=== PATIENT | male | born 1965 | race Two or more races ===

== ENCOUNTER 2020-07-24 07:03 | Day surgery (SDC) | payer BC ==
[2020-07-24] VITALS (12 sets, daily range): BP systolic 102–131; BP diastolic 72–90
[~2020-07-24] VITALS: Ht 177.8 cm; Wt 81.6 kg
[2020-07-24] MEDS ORDERED: TRAZODONE HCL50 MG ORAL (07:38)
[2020-07-24] MEDS ORDERED: PRILOSEC OTC20 MG ORAL (07:38)
[2020-07-24] MEDS ORDERED: LR 1000ml ONE (08:00)
[2020-07-24] MEDS ORDERED: NS Irrig 1000ml ONE (08:00)
[2020-07-24] MEDS ORDERED: Sterile Water Irrig 1000ml IRRIG ONE (08:00)
[2020-07-24] MEDS ORDERED: EPINEPHrine 1mg/1ml Amp ONE (08:29)
[2020-07-24] MEDS ORDERED: Bupivacaine 0.5% Inj 30 ml vial INJ ONE (08:30)
[2020-07-24] MEDS ORDERED: Bupivacaine w/Epi 0.25% 50ml vial INJ ONE (08:30)
[2020-07-24] MEDS ORDERED: Bacitracin 50000 Units Vial ONE (08:30)
[2020-07-24] MEDS ORDERED: Hydromorphone 0.5mg/0.5ml inj IVP PRN (08:45)
[2020-07-24] MEDS ORDERED: Meperidine 25mg/1ml Inj (FOR RIGORS ONLY) IV PRN (08:45)
[2020-07-24] MEDS ORDERED: oxyCODONE HCL/Acetaminophen 5/325mg ORAL PRN (08:45)
[2020-07-24] MEDS ORDERED: HYDROcodone/Acetamin 5/325 tab ORAL PRN ×2 (08:45→12:15)
[2020-07-24] MEDS ORDERED: Ketorolac 30mg Inj IV PRN ×2 (08:45)
[2020-07-24] MEDS ORDERED: HYDROcodone/Acetamin 7.5/325 tab ORAL PRN (08:45)
[2020-07-24] MEDS ORDERED: Acetaminophen (Non formulary) 100 ML IV ONE (08:45)
[2020-07-24] MEDS ORDERED: Metoclopramide 10mg/2ml Inj IVP PRN (08:45)
[2020-07-24] MEDS ORDERED: Atropine Sulfate 0.4mg/ml inj IVP PRN (08:45)
[2020-07-24] MEDS ORDERED: LR 1000ml 1,000 ML IVLG SCH (08:45)
[2020-07-24] MEDS ORDERED: LORazepam Inj 2mg/ml 1ml IV PRN (08:45)
[2020-07-24] MEDS ORDERED: DiphenhydrAMINE 50mg/ml Inj IVP PRN (08:45)
[2020-07-24] MEDS ORDERED: Labetalol 5mg/ml 20ml vial IV PRN (08:45)
[2020-07-24] MEDS ORDERED: Midazolam 2mg/2ml Inj IVP PRN (08:45)
[2020-07-24] MEDS ORDERED: fentaNYL 100 mcg/2 mL IV PRN (08:45)
--- NOTE | 2020-07-24 08:46 | Anethesia Preoperative Eval ---
Anesthesia Pre-op PMH/ROS General Date of Evaluation: Jul 24, 2020 Time of Evaluation: 08:51 Anesthesiologist: Yessenia ASA Score: ASA 2 Mallampati Score Class I : Soft palate, uvula, fauces, pillars visible Class II: Soft palate, uvula, fauces visible Class III: Soft palate, base of uvula visible Class IV: Only hard plate visible Mallampati Classification: Class II Surgeon: Hermann Diagnosis: Abd Pain Surgical Procedure: Laparoscopic Left Inguinal Hernia Repair with Mesh Anesthesia History: none Family History: no anesthesia problems Allergies: Coded Allergies: No Known Allergies (Unverified , 07/24/20) Medications: see eMAR Patient NPO?: Yes Past Medical History Gastrointestinal/Genitourinary: Reports: GERD, other - BPH PSxH Narrative: L Femur, Hip SX Anesthesia Pre-op Phys. Exam Physician Exam Last Vital Signs Date Time Temp Pulse Resp B/P (MAP) Pulse Ox O2 Delivery O2 Flow Rate FiO2 07/24/20 07:32 97.7 81 18 119/77 96 Room Air Constitutional: NAD Neurologic: CN 2-12 intact Cardiovascular: RRR Respiratory: CTA Gastrointestinal: S/NT/ND Airway Exam Mallampati Score: Class II MO: full ROM: full Teeth: missing, intact Anesthesia Pre-op A/P Risk Assessment & Plan Assessment: ASA 2 Plan: GA, SED, GlideScope Status Change Before Surgery: No Pre-Antibiotics Dru Gram Ancef IV Given Within 1 Hr of Incision: Yes Time Given: 09:16 Telly Casas MD Jul 24, 2020 08:46
[2020-07-24] MEDS ORDERED: Sodium Chloride 10ml vial INJ ONE (08:48)
[2020-07-24] MEDS ORDERED: Lidocaine 1% MPF 10mg/ml 5ml ONE (08:48)
[2020-07-24] MEDS ORDERED: fentaNYL 100 mcg/2 mL IV ONE (08:49)
[2020-07-24] MEDS ORDERED: Neostigmine 1mg/ml 10ml Inj ONE (09:57)
[2020-07-24] MEDS ORDERED: Glycopyrrolate 0.2mg/ml 1ml Vial ONE (09:57)
--- NOTE | 2020-07-24 10:00 | Immediate Post-Op Evaluation ---
Immediate Post-Op Evalulation Immediate Post-Op Evalulation Procedure: Laparoscopic Left Inguinal Hernia Repair with Mesh Date of Evaluation: Jul 24, 2020 Time of Evaluation: 10:59 IV Fluids: 1100 LR Blood Products: 0 Estimated Blood Loss: 25 Urinary Output: 0 Blood Pressure Systolic: 125 Blood Pressure Diastolic: 90 Pulse Rate: 69 Respiratory Rate: 16 O2 Sat by Pulse Oximetry: 100 Temperature (Fahrenheit): 98.5 Pain Score (1-10): 2 Nausea: No Vomiting: No Complications 0 Patient Status: awake, reacts, patent, extubated, none Hydration Status: adequate Drug: `1Gram Ancef IV Given Within 1 Hr of Incision: Yes Time Given: 09:16 Telly Casas MD Jul 24, 2020 10:00
--- NOTE | 2020-07-24 10:01 | 48 Hour Post Anesthesia Eval ---
Post Anesthesia Evaluation Procedure: Laparoscopic Left Inguinal Hernia Repair with Mesh Date of Evaluation: Jul 24, 2020 Time of Evaluation: 13:12 Blood Pressure Systolic: 126 0: 86 Pulse Rate: 67 Respiratory Rate: 18 Temperature (Fahrenheit): 98.6 O2 Sat by Pulse Oximetry: 100 Airway: patent Nausea: No Vomiting: No Pain Intensity: 2 Hydration Status: adequate Cardiopulmonary Status: Stable Mental Status/LOC: patient returned to baseline Follow-up Care/Observations: 0 Post-Anesthesia Complications: 0 Follow-up care needed: N/A Telly Casas MD Jul 24, 2020 10:01
--- NOTE | 2020-07-24 12:14 | Pre-Procedure Note/Attestation ---
Pre-Procedure Note/Attestation Complete Prior to Procedure Procedure Narrative: laparoscopic left inguinal hernia repair with mesh, possible right Indications for Procedure Pre-Operative Diagnosis: left inguinal hernia possible right Attestation I attest that I discussed the nature of the procedure; its benefits; risks and complications; and alternatives (and the risks and benefits of such alternatives), prior to the procedure, with the patient (or the patient's legal claims service representative). I attest that, if there was a reasonable possibility of needing a blood transfusion, the patient (or the patient's legal claims service representative) was given the [facility] standardized written summary, pursuant to the [place] Blood Safety Act ([place] Health and Safety Code # 1645, as amended). I attest that I re-evaluated the patient just prior to the surgery and that there has been no change in the patient's H&P, except as documented below: Pal Mccrary Jul 24, 2020 12:14
[2020-07-24] MEDS ORDERED: D5 1/2NS 1,000 ML IV SCH (12:15)
[2020-07-24] MEDS ORDERED: Tylenol #3 tab (300mg/30mg) ORAL PRN (12:15)
[2020-07-24] MEDS ORDERED: HYDROmorphone 1mg/ml Carpuject SUBQ PRN (12:15)
--- NOTE | 2020-07-24 12:15 | Brief Operative Note ---
Immediate Post Operative Note Operative Note Pre-op Diagnosis: left inguinal hernia possible right Post-op Diagnosis: large left incarcerated inguinal hernia, no right inguinal hernia Surgeon: cele mccrary md Anesthesiologist: gera Anesthesia: general, local Specimen: none Complications: none Condition: stable Fluids: see Estimated Blood Loss: minimal Drains: none Implant(s) used?: Yes Cele Mccrary Jul 24, 2020 12:15
--- NOTE | 2020-07-24 15:29 | Operative Note - Dictated ---
DATE OF OPERATION: 07/24/2020 PREOPERATIVE DIAGNOSIS: Large left inguinal hernia, possible right. POSTOPERATIVE DIAGNOSES: 1. Incarcerated large left inguinal hernia, indirect into the scrotum. 2. No right inguinal hernia. OPERATION PERFORMED: Laparoscopic left inguinal hernia repair with mesh. ATTENDING SURGEON: Pal Mccrary M.D. SUGAR DRIER: None. ANESTHESIOLOGIST: Telly Casas MD ANESTHESIA: General GETA plus local. ESTIMATED BLOOD LOSS: Minimal. IV FLUIDS: Please see anesthesia records. COMPLICATIONS: None. DRAINS: None. COUNT: Sponge and needle count correct x2. WOUND CLASSIFICATION: Class 1. IMPLANTS: Bard large 3DMax mesh left-sided lot [id number], reference [id number], expiration 01/04/2024. INDICATIONS FOR PROCEDURE: This is a very pleasant 55-year-old male that was seen by his primary care physician who identified a large left inguinal hernia that was protruding out and that time it could not easily be reduced. The patient thought it was muscular strain and had been growing for over a year causing more discomfort. After being identified to have an inguinal hernia, he was referred to myself for evaluation at which time he was seen in the office and identified to have a large left inguinal hernia going down into the scrotum as well as a potential right inguinal hernia. Given these findings, surgery was indicated and recommended. Risks, benefits, and alternatives discussed in detail with the patient in the office, including use of mesh including the potential risks such as mesh infection, infection, bleeding, cord injury, testicular injury, potential necessity of reoperation, potential open surgery, including nerve injury. After having discussion, the patient expressed understanding and consented procedure which was scheduled for 07/24/2020. Preoperative COVID testing and all workup was performed by the patient's primary care physician. OPERATIVE NOTE: The patient was taken to the operating room and placed on the operating table in supine position. Bilateral arms tucked. All bony prominences well padded. SCDs placed. Preoperative time-out taken to identify the patient, procedure, operative staff, and surgical staff. General anesthesia was induced and patient was intubated. The abdomen was clipped, prepped, and draped in standard surgical fashion. Local anesthetic was infiltrated throughout the procedure for the patient's comfort. An infraumbilical incision was made and carried down through subcutaneous tissue and fascia. The fascia was elevated and incised. Entry into the abdomen obtained using open Elbert technique. A 12 mm Elbert trocar was inserted and the abdomen was insufflated to 12 to 15 mmHg. The patient tolerated the insufflation well. Secondary trocars placed on the left mid abdomen. Under direct visualization, a 5 mm trocar was placed. The right upper quadrant was inspected. The liver was otherwise healthy with no abnormalities, nodularity, masses, or complications. Gallbladder was otherwise benign. Left lobe of the liver and stomach directly visualized, otherwise benign in the left upper quadrant. The portion of the omentum and intestines that could be identified were otherwise benign. In the right lower quadrant, there was no hernia identified. The peritoneal lining was cleared. No hernia direct or indirect was noted on the right lower quadrant. Attention was turned to the left lower quadrant where a large left inguinal indirect hernia was identified with sigmoid colon and omental fat protruding through it. This was incarcerated and required external manipulation as well as internal to reduce it. Once reduced, we began the repair. At 2 cm of the defect, a incision was made in peritoneal lining, carried from the medial umbilical ligament laterally to the anterior superior iliac spine. A peritoneal flap was created down to the hernia sac and the hernia sac was grossly reduced. Once completely reduced, the cord structures were circumferentially dissected out and identified and mobilized throughout the procedure for the patient's comfort. The Puneet's ligament and pubic tubercle were identified medially and dissected clear and laterally towards the anterior superior iliac spine. Once peritoneal lining was appropriate, a Bard left-sided large 3DMax mesh was brought into the operative field and placed into the abdomen under direct visualization. The mesh was unrolled and tucked to Puneet's ligament using absorbable ProTack. Following this, the appropriate position of the mesh was identified covering hernia defect and with appropriate placement without complication. A flat lying comfortable mesh was noted. The peritoneal lining was reapproximated using the absorbable ProTack to identify the location of the epigastric to ensure not injuring it and not going laterally. Once this was completed, a satisfactory left inguinal hernia repair with mesh was performed without complication. The colon intestines were returned to the anatomical position. The remainder of the abdomen was inspected. No injury or other abnormalities identified. At this time, secondary trocars removed under visualization followed by the umbilical trocar site. The abdomen was desufflated. The umbilical trocar site fascia was reapproximated with [id number] #0 Vicryl sutures. Skin incisions were reapproximated with 4-0 Monocryl subcuticular interrupted sutures. Skin glue, Steri-Strips and dressings were applied. At the end of the procedure, both the right and left testicles were identified in the scrotal sac without complication. The patient tolerated the procedure well, was extubated, and taken to postanesthetic care unit in stable condition. Pal Mccrary M.D. DR: Janine JOB#: [id number] CC:
== END 2020-07-24 12:40 | disposition home or self-care (01) ==
LOC: SUR 07:03
DX: K40.30 Unilateral inguinal hernia, with obstruction, without gangrene, not specified as recurrent (principal); K21.9 Gastro-esophageal reflux disease without esophagitis
CPT/HCPCS: 49650; 94003; C1781; J0131; J0690; J1100; J1885; J2250; J2405; J2704; J2710; J3010; J7120; 94150; J2180